=== PATIENT | male | born 1990 | race Caucasian/White ===

== ENCOUNTER 2017-07-19 20:47 | Emergency (ER) | payer MEDICARE, OTHER ==
--- NOTE | 2017-07-19 22:24 | ER Document Report ---
ED Cardiac - General Chief Complaint: Chest Pain Stated Complaint: CHEST PAIN Time Seen by Provider: 07/19/17 21:50 Notes: The patient is a 26-year-old male, past medical history factor V Leiden with PE (on Eliquis), kidney transplant 2 years ago at [place] from IgA nephropathy, hypertension, presents with several hours of diffuse chest tightness with referred pain to his bilateral shoulders. Patient says the pain is not worse with movement or inspiration. He denies shortness of breath, nausea, vomiting, fevers, cough, leg swelling, numbness, tingling, headache or abdominal pain. TRAVEL OUTSIDE OF THE [place] IN LAST 30 DAYS: No Past Medical History - General Information source: Patient - Social History Smoking Status: Unknown if Ever Smoked Family History: Reviewed & Not Pertinent Review of Systems - Review of Systems Notes: REVIEW OF SYSTEMS: CONSTITUTIONAL: -fevers, -chills EENT: -eye pain, -difficulty swallowing, -nasal congestion CARDIOVASCULAR: +chest pain, -syncope. RESPIRATORY: -cough, -SOB GASTROINTESTINAL: -abdominal pain, - nausea, -vomiting, -diarrhea GENITOURINARY: -dysuria, -hematuria MUSCULOSKELETAL: -back pain, -neck pain SKIN: -rash or skin lesions. HEMATOLOGIC: -easy bruising or bleeding. LYMPHATIC: -swollen, enlarged glands. NEUROLOGICAL: -altered mental status or loss of consciousness, -headache, - neurologic symptoms PSYCHIATRIC: -anxiety, -depression. ALL OTHER SYSTEMS REVIEWED AND NEGATIVE. Physical Exam - Vital signs Vitals: Temp Pulse Resp BP Pulse Ox 99.1 F 96 18 137/90 H 97 07/19/17 21:03 07/19/17 21:03 07/19/17 21:03 07/19/17 21:03 07/19/17 21:03 - Notes Notes: PHYSICAL EXAMINATION: GENERAL: Well-appearing, well-nourished and in no acute distress. HEAD: Atraumatic, normocephalic. EYES: Pupils equal round and reactive to light, extraocular movements intact, sclera anicteric, conjunctiva are normal. ENT: nares patent, oropharynx clear without exudates. Moist mucous membranes. NECK: Normal range of motion, supple without lymphadenopathy LUNGS: Breath sounds clear to auscultation bilaterally and equal. No wheezes rales or rhonchi. HEART: Regular rate and rhythm without murmurs ABDOMEN: Soft, nontender, normoactive bowel sounds. No guarding, no rebound. No masses appreciated. EXTREMITIES: Normal range of motion, no pitting or edema. No cyanosis. NEUROLOGICAL: Cranial nerves grossly intact. Normal speech, normal gait. Normal sensory and motor exams. PSYCH: Normal mood, normal affect. SKIN: Warm, Dry, normal turgor, no rashes or lesions noted. Course - Re-evaluation Re-evalutation: Pt's chest pain started earlier today. His EKG and troponin do not show any evidence of ACS at this time. His HEART score is 2. Pt already on Eliquis for prior PEs and patient is not having any shortness of breath, hemoptysis or hypoxia to suggest new PEs at this time. Symptoms are atypical for aortic dissection currently. Pt says his baseline creatinine is 1.6 and he follows with Dr. Larose. Patient also has a leukocytosis, but he is chronically on prednisone and there are no signs of infection at this time. Patient's lipase also slightly elevated at 450, but he is not having any epigastric pain, nausea or vomiting to suggest pancreatitis. Instructed patient that he must follow-up with his primary care physician for further evaluation and treatment. Also provided patient with follow-up at nephrology due to his renal transplant. Given very strict return precautions and he understands. - Vital Signs Vital signs: Temp Pulse Resp BP Pulse Ox 99.1 F 96 23 H 140/97 H 95 07/19/17 21:03 07/19/17 21:03 07/19/17 23:01 07/19/17 23:01 07/19/17 23:01 - Laboratory Result Diagrams: 07/19/17 22:30 07/19/17 22:30 Laboratory results interpreted by me: 07/19/17 07/19/17 22:30 22:30 WBC 14.4 H Seg Neuts % (Manual) 89 H Lymphocytes % (Manual) 4 L Abs Neuts (Manual) 12.8 H Creatinine 1.67 H Est GFR (Non-Af Amer) 50 L Calcium 10.4 H Lipase 480.5 H - Diagnostic Test Radiology reviewed: Image reviewed, Reports reviewed Radiology results interpreted by me: CXR: NAD - EKG Interpretation by Me EKG shows normal: Sinus rhythm, [place], Intervals, QRS Complexes, ST-T Waves Voltage: Consistant with LVH When compared to previous EKG there are: Previous EKG unavailable Discharge - Discharge Clinical Impression: Chest pain Qualifiers: Chest pain type: unspecified Qualified Code(s): R07.9 - Chest pain, unspecified Condition: Stable Additional Instructions: CHEST PAIN OF UNCLEAR CAUSE: The exact cause of your chest pain isn't clear. Fortunately, there is no evidence of a dangerous medical condition. Further testing may be required to find the source of the pain. Most often, we find that this pain is coming from the chest wall -- the muscles or rib joints in the chest. But chest pain can come from the lung and lung lining, the esophagus, the heart valves or heart lining, and even the stomach or gallbladder. Rest. Eat lightly until the pain is gone. We may prescribe medicine for pain and inflammation. You should call the physician immediately if the pain radiates to the shoulder, jaw or arms; if you start to run a fever or develop a cough; or if you develop shortness of breath, or other new or alarming symptoms. NORMAL EXAM AND WORKUP: At this time, your examination and workup show no significant abnormality. No significant abnormal physical findings were noted. All laboratory, EKG, and imaging (x-ray, CT scans, ultrasound) studies that were ordered show no significant abnormality. Although your examination and all studies that were ordered showed no significant abnormal finding, there are no examinations and no studies that are 100% accurate. There is always the possibility that some abnormality could exist and not be detected with physical examination or within the limits and capabilities of laboratory and other studies. You should return or follow up as you were instructed on your visit today for further evaluation if your symptoms do not resolve. CHEST WALL PAIN: Your chest pain may be coming from the chest wall. This is often caused by straining the muscles or joints in the chest during physical activity, direct trauma, coughing, or vigorous vomiting. Persons with arthritis are especially prone to this type of pain, due to inflammation of the cartilage joints near the breast bone. Occasionally, no cause can be found. Rest from strenuous physical activity. This kind of chest pain is usually made worse by movement of the chest. Depending on the symptoms, we may prescribe medicine for pain, muscle relaxation, and antiinflammatory effects. If the pain is new, and seems to be due to muscle strain, cold packs can help. Otherwise, apply gentle warmth to the painful area for 15 minutes every hour or two. You should call contact the doctor immediately if things change. Further evaluation is needed if you develop a fever or cough, if the nature of the pain changes, or if you become short of breath. ANGINA EPISODE: Your physician has diagnosed the pain you experienced as an episode of angina. Angina occurs when a portion of the heart muscle temporarily lacks oxygen. It does not cause any permanent heart damage, but serves as a warning. Hospitalization is not necessary now. Evaluation of your cardiac condition , and medical therapy for angina will be necessary. It's important you be sure to keep all appointments and take medication exactly as prescribed. Angina is usually treated with a type of "nitrate" medication. This is available as ointment, pills, or sublingual (under the tongue) tablets. Depending on your clinical situation, other medications may be added to help control angina. These may include beta blockers or calcium blockers. If episodes of angina are occurring with increased frequency, or if chest pain lasts longer than 15 minutes or does not respond to nitroglycerin, you must seek emergency medical care immediately. ACID REFLUX DISEASE (GERD): Gastro-Esophageal Reflux Disease (GERD) is caused by stomach acid refluxing back up into the esophagus. The valve at the end of the esophagus may be weak. This is common in persons with a hiatal hernia. GERD symptoms can include indigestion, chest pain, heartburn, or food "sticking." Certain foods, alcohol, and aspirin can make GERD worse. Treatment depends on the severity. Usually, antacids or acid-suppressing medicines are used. When the esophagus is acutely inflamed, the physician will often prescribe membrane-protective drugs such as Carafate. Some patients benefit from medication such as Reglan that tightens the valve at the top of the stomach. Avoid those foods that bring on your symptoms. For many people, these foods are coffee, chocolate, onions, garlic, and carbonated drinks. Don't use alcohol, aspirin, caffeine, or tobacco. Don't eat late at night -- within 4 hours of bedtime. Don't over-eat. If necessary, elevate the head of your bed about 4 inches so that stomach acid will not roll up into your esophagus. Call the doctor if you develop severe chest pain, inability to swallow fluids, fever, or worsening symptoms. FOLLOW-UP CARE: If you have been referred to a physician for follow-up care, call the physician s office for an appointment as you were instructed or within the next two days. If you experience worsening or a significant change in your symptoms, notify the physician immediately or return to the Emergency Department at any time for re-evaluation. Forms: Elevated Blood Pressure Referrals: JIAN MUNIZ MD [COMMUNITY BASED STAFF] - Follow up as needed CARLIE DAVILA MD [ACTIVE STAFF] - Follow up as needed
--- NOTE | 2017-07-19 22:36 | RADIOLOGY REPORT (SQ) ---
EXAM DESCRIPTION: CHEST PA/LAT COMPLETED DATE/TIME: 07/19/2017 10:25 pm REASON FOR STUDY: chest pain COMPARISON: None. EXAM PARAMETERS: NUMBER OF VIEWS: two views TECHNIQUE: Digital Frontal and Lateral radiographic views of the chest acquired. RADIATION DOSE: NA LIMITATIONS: none FINDINGS: LUNGS AND PLEURA: No opacities, masses or pneumothorax. No pleural effusion. MEDIASTINUM AND HILAR STRUCTURES: No masses or contour abnormalities. HEART AND VASCULAR STRUCTURES: Heart normal size. No evidence for failure. BONES: No acute findings. HARDWARE: None in the chest. OTHER: No other significant finding. IMPRESSION: NO SIGNIFICANT RADIOGRAPHIC FINDING IN THE CHEST. TECHNICAL DOCUMENTATION: JOB ID: [id number] [place]-72 2010 [employer]- All Rights Reserved
[2017-07-19 22:48] LABS: HEMOGLOBIN 14.8 g/dL (13.5-17.0); HGB HCT DIFFERENCE 1.4; MEAN CORPUSCULAR HEMOGLOBIN 30.4 pg (27.0-33.4); MEAN CORPUSCULAR HGB CONC 34.4 g/dL (32.0-36.0); MEAN CORPUSCULAR VOLUME 88 fl (80-97); RED BLOOD COUNT 4.87 10^6/uL (4.35-5.55); RED CELL DISTRIBUTION WIDTH 13.4 % (11.5-14.0); WHITE BLOOD COUNT 14.4 10^3/uL (4.0-10.5)
[2017-07-19 22:58] LABS: ALANINE AMINOTRANSFERASE 33 U/L (21-72); ALBUMIN 4.9 g/dL (3.5-5.0); ALKALINE PHOSPHATASE 63 U/L (38-126); ANION GAP 15 (5-19); ASPARTATE AMINO TRANSFERASE 22 U/L (17-59); BILIRUBIN,DIRECT 0.2 mg/dL (0.0-0.4); BILIRUBIN,TOTAL 0.7 mg/dL (0.2-1.3); BLOOD UREA NITROGEN 19 mg/dL (7-20); CALCIUM 10.4 mg/dL (8.4-10.2); CARBON DIOXIDE 24 mmol/L (22-30); CHLORIDE 100 mmol/L (98-107); CREATINE KINASE 149 U/L (55-170); CREATININE RESULT 1.67 mg/dL (0.52-1.25); GLUCOSE 96 mg/dL (75-110); LIPASE 480.5 U/L (23-300); SODIUM 138.6 mmol/L (137-145); TOTAL PROTEIN 7.6 g/dL (6.3-8.2)
[2017-07-19] MEDS ORDERED: HYDROCODONE/ACETAMINOPHEN 5-325 MG TABLET PO ONE (23:06)
[2017-07-19 23:09] LABS: TROPONIN I < 0.012 ng/mL
[2017-07-19 23:10] LABS: BASOPHILS % (MANUAL) 0 % (0-2); EOSINOPHILS % (MANUAL) 0 % (0-6); LYMPHOCYTES % (MANUAL) 4 % (13-45); TOTAL CELLS COUNTED 100
[2017-07-19 23:11] LABS: OVALOCYTES SLIGHT; POIKILOCYTOSIS SLIGHT
[2017-07-19 23:21] VITALS: BP 140/97
--- NOTE | 2017-07-20 07:50 | EKG REPORT ---
SEVERITY:- ABNORMAL ECG - SINUS RHYTHM PROBABLE LEFT VENTRICULAR HYPERTROPHY : Confirmed by: Tani Haddad MD 20-Jul-2017 07:48:52
== END 2017-07-19 23:40 | disposition home or self-care (01) ==
LOC: ER 20:47
DX: R07.89 Other chest pain (principal); R74.8 Abnormal levels of other serum enzymes; D68.51 Activated protein C resistance; Z79.01 Long term (current) use of anticoagulants; Z86.711 Personal history of pulmonary embolism; Z94.0 Kidney transplant status; I10 Essential (primary) hypertension; D72.829 Elevated white blood cell count, unspecified; Z79.52 Long term (current) use of systemic steroids
CPT/HCPCS: 93005; 99285; 36415; 82550; 83690; 85025; 80053; 84484; 83880; 71020; 93010; A9270

== ENCOUNTER 2020-02-01 09:03 | Emergency (ER) | payer BC, MEDICARE ==
[2020-02-01] MEDS ORDERED: NORMAL SALINE 1000 ML 1,000 ML IV ONE (10:10)
[2020-02-01] MEDS ORDERED: LEVOFLOXACIN 750 MG/D5W RTU 750 MG/150 ML RTUPB IV ONE (10:10)
[2020-02-01 11:26] LABS: APPEARANCE,URINE CLEAR; BILIRUBIN,URINE NEGATIVE (NEGATIVE); COLOR,URINE STRAW; GLUCOSE, URINE NEGATIVE (NEGATIVE); KETONES,URINE NEGATIVE (NEGATIVE); LEUKOCYTE ESTERASE,URINE NEGATIVE (NEGATIVE); NITRITE,URINE NEGATIVE (NEGATIVE); PROTEIN,URINE NEGATIVE (NEGATIVE); URINE SPECIFIC GRAVITY 1.011; UROBILINOGEN,URINE NEGATIVE mg/dL (<2.0)
[2020-02-01 11:37] LABS: ABSOLUTE LYMPHOCYTES (AUTO) 0.8 10^3/uL (0.5-4.7); ABSOLUTE MONOCYTES (AUTO) 0.2 10^3/uL (0.1-1.4); ABSOLUTE NEUT (AUTO) 7.9 10^3/uL (1.7-8.2); BASOPHILS % (AUTO) 0.4 % (0-2); EOSINOPHILS % (AUTO) 0.2 % (0-6); HEMATOCRIT 43.1 % (37.9-51.0); HEMOGLOBIN 15.1 g/dL (13.5-17.0); LYMPHOCYTES % (AUTO) 9.4 % (13-45); MEAN CORPUSCULAR HEMOGLOBIN 31.1 pg (27.0-33.4); MEAN CORPUSCULAR VOLUME 89 fl (80-97); MONOCYTES % (AUTO) 2.2 % (3-13); PLATELET COUNT 239 10^3/uL (150-450); RED BLOOD COUNT 4.84 10^6/uL (4.35-5.55); RED CELL DISTRIBUTION WIDTH 12.8 % (11.5-14.0); SEGMENTED NEUTROPHILS % (AUTO) 87.8 % (42-78); TOTAL CELLS COUNTED % (AUTO) 100 %
[2020-02-01 11:43] LABS: ALBUMIN 4.8 g/dL (3.5-5.0); ALKALINE PHOSPHATASE 56 U/L (38-126); ANION GAP 8 (5-19); ASPARTATE AMINO TRANSFERASE 23 U/L (17-59); BILIRUBIN,TOTAL 0.6 mg/dL (0.2-1.3); BLOOD UREA NITROGEN 24 mg/dL (7-20); CALCIUM 10.5 mg/dL (8.4-10.2); CARBON DIOXIDE 24 mmol/L (22-30); CHLORIDE 106 mmol/L (98-107); GLUCOSE 120 mg/dL (75-110); POTASSIUM 4.8 mmol/L (3.6-5.0); TOTAL PROTEIN 7.6 g/dL (6.3-8.2)
[2020-02-01 12:57] LABS: CHLAM PCR NOT DETECTED (NOT DETECT)
[2020-02-01] MEDS ORDERED: CEFTRIAXONE INJ 250 MG VIAL IM ONE (14:18)
[2020-02-01] MEDS ORDERED: LIDOCAINE 1% INJ-PF (10 MG/ML) 30 ML SDV ONE (14:35)
--- NOTE | 2020-02-01 15:53 | RADIOLOGY REPORT (SQ) ---
EXAM DESCRIPTION: CT ABD/PELVIS NO ORAL OR IV IMAGES COMPLETED DATE/TIME: 02/01/2020 3:37 pm REASON FOR STUDY: bilat/renal transplant/hematuria COMPARISON: None. TECHNIQUE: CT scan of the abdomen and pelvis performed without intravenous or oral contrast. Images reviewed with lung, soft tissue, and bone windows. Reconstructed coronal and sagittal MPR images revi ewed. All images stored on PACS. All CT scanners at this facility use dose modulation, iterative reconstruction, and/or weight based d osing when appropriate to reduce radiation dose to as low as reasonably achievable (ALARA). [facility]: Dose Right [facility]: CareDose [facility]: Dose Right [facility]: Teradose 4D [facility]: [employer] RADIATION DOSE: CT Rad equipment meets quality standard of care and radiation dose reduction techniq ues were employed. CTDIvol: 6.8 mGy. DLP: 387 mGy-cm.mGy. LIMITATIONS: None. FINDINGS: LOWER CHEST: No significant findings. No nodules or infiltrates. NON-CONTRASTED LIVER, SPLEEN, ADRENALS: Evaluation limited by lack of IV contrast. No identified sign ificant masses. PANCREAS: No masses. No peripancreatic inflammatory changes. GALLBLADDER: No calcified stones. No inflammatory changes to suggest cholecystitis. RIGHT KIDNEY AND URETER: Atrophic. No hydronephrosis or hydroureter. LEFT KIDNEY AND URETER: Atrophic. No hydronephrosis or hydroureter. AORTA AND RETROPERITONEUM: No aneurysm. No retroperitoneal masses or adenopathy. BOWEL AND PERITONEAL CAVITY: No obvious masses or inflammatory changes. No free fluid. APPENDIX: Normal. PELVIS, BLADDER, AND ABDOMINAL WALL:Right pelvic transplanted kidney. No free fluid. Unremarkable luigi dder. BONES: No acute findings. OTHER: No other significant finding. IMPRESSION: NO ACUTE FINDINGS.Right pelvic transplanted kidney. No free fluid. Unremarkable bladder. TECHNICAL DOCUMENTATION: JOB ID: [id number] [place]-72 Quality ID # [id number]: Final reports with documentation of one or more dose reduction techniques (e.g., Au tomated exposure control, adjustment of the mA and/or kV according to patient size, use of iterative reconstruction technique) 2010 [employer]- All Rights Reserved Reading location - IP/workstation name: [email or web address]
--- NOTE | 2020-02-01 16:14 | ER Document Report ---
Entered by CORDELIA LEVY SCRIBE 02/01/20 0957 Acting as scribe for:SHANE VELÁZQUEZ MD ED GI/ - General Chief Complaint: Urinary Problem Stated Complaint: URINARY PROBLEMS/BACK PAIN Time Seen by Provider: 02/01/20 09:23 Information source: Patient Notes: This 29 year old male patient presents to the emergency department today with complaints of bilateral flank pain R>L for the past x3 days. Patient reports burning while urinating and white discharge. Patient states he has a history of bilateral kidney failure in 2013 and had a transplant in 2014. Patient states his flank pain is dull and aching. Patient states he takes anti-rejection medicine for his transplant and has a appointment in x15 days at [facility] for his kidney. Denies pain where his transplant is located. Denies any fever, chills, or N/V/D. Patient reports he had chlamydia in and is currently taking antibiotics for poison praveen. TRAVEL OUTSIDE OF THE [place] IN LAST 30 DAYS: No - Related Data Allergies/Adverse Reactions: insulin glargine Allergy (Verified 02/01/20 09:09) Home Medications: nifidipine. prednisone. lorsartin. tacrolimus. mycophenolate Past Medical History - General Information source: Patient - Social History Smoking Status: Former Smoker Cigarette use (# per day): No Chew tobacco use (# tins/day): Yes - in past Frequency of alcohol use: Social Drug Abuse: None Family History: Reviewed & Not Pertinent Patient has homicidal ideation: No Renal/ Medical History: Reports: Other - Bilateral kidney failure 2013 Past Surgical History: Reports: Hx Kidney (Renal Surgery) - Kidney transplant 2 015 Review of Systems - Review of Systems Constitutional: See HPI. denies: Chills, Fever EENT: No symptoms reported Cardiovascular: No symptoms reported Respiratory: No symptoms reported Gastrointestinal: See HPI. denies: Diarrhea, Nausea, Vomiting Genitourinary: See HPI, Burning, Flank pain - bilateral R>L Male Genitourinary: See HPI Musculoskeletal: No symptoms reported Skin: See HPI Hematologic/Lymphatic: No symptoms reported Neurological/Psychological: No symptoms reported -: Yes All other systems reviewed and negative Physical Exam - Vital signs Vitals: Temp 97.7 F 02/01/20 09:09 - General General appearance: Appears well, Alert - HEENT Head: Normocephalic, Atraumatic Eyes: Normal Pupils: PERRL - Respiratory Respiratory status: No respiratory distress Chest status: Nontender Breath sounds: Normal Chest palpation: Normal - Cardiovascular Rhythm: Regular Heart sounds: Normal auscultation Murmur: No - Abdominal Inspection: Normal Distension: No distension Bowel sounds: Normal Tenderness: Nontender - Genitourinary Notes: Circumcised male. Genitalia is normal on exam. Testicles are non-tender. No hernia. No sores noted on the penis or discharge. - Back Back: Other - No CVA tenderness - Extremities General upper extremity: Normal inspection. No: Edema General lower extremity: Normal inspection. No: Edema - Neurological Neuro grossly intact: Yes Cognition: Normal Orientation: AAOx4 Speech: Normal - Psychological Associated symptoms: Normal affect, Normal mood - Skin Skin Temperature: Warm Skin Moisture: Dry Skin Color: Normal Course - Re-evaluation Re-evalutation: 02/01/20 16:04 Patient reports that he is not having urinary discomfort at this time or flank pain. - Vital Signs Vital signs: Temp Pulse Resp BP Pulse Ox 98.4 F 59 L 15 145/85 H 100 02/01/20 13:59 02/01/20 13:59 02/01/20 13:59 02/01/20 13:59 02/01/20 13:59 - Laboratory Result Diagrams: 02/01/20 10:40 02/01/20 10:40 Laboratory results interpreted by me: 02/01/20 02/01/20 02/01/20 10:40 10:40 10:40 Lymph % (Auto) 9.4 L [place] % (Auto) 2.2 L Seg Neutrophils % 87.8 H BUN 24 H Creatinine 1.50 H Est GFR (MDRD) Non-Af 55 L Glucose 120 H Calcium 10.5 H Urine Blood SMALL H Signs are stable patient's laboratories are within normal limits his creatinine is 1.5 which is his baseline there was a small amount of urine noted on the dipstick on and on microscopic study that showed a 2 red cells per high-powered field. There was no white blood cells or bacteria nitrite positive urine. 02/01/20 16:06 Also laboratory results shows negative PCR testing of urine for gonorrhea and chlamydia. A urethral swab of the penis was done to send out for culture of gonorrhea and chlamydia. Also patient received IM Rocephin 250 mg in the emergency department. And patient will be discharged home to take 1 g of Zithromax. Patient is to be followed up with his kidney specialist at [facility] regarding his recent visit. - Diagnostic Test Radiology reviewed: Image reviewed, Reports reviewed Radiology results interpreted by me: 02/01/20 16:06 CT scan of abdomen and pelvis noncontrast shows a transplanted kidney in the right lower quadrant of the abdomen no other acute process noted. No kidney stones were seen no evidence of pyelonephritis seen. Discharge - Discharge Clinical Impression: Urethral discharge in male, Flank pain, Renal transplant recipient Condition: Stable Disposition: HOME, SELF-CARE Additional Instructions: Urethritis You have urethritis, an infection of the urethra. The usual symptoms are pain on urination and discharge. The infection is often caused by gonorrhea or chlamydia. Treatment is antibiotics. In addition, any sexual contacts should be e valuated by a physician as soon as possible. As this infection can be transmitted sexually, refrain from sexual activity until the infection is confirmed as healed by your physician. If gonorrhea or chlamydia is found on culture, the health department must be notified. Call the doctor at once if you develop difficulty passing your urine, high fever, rash, joint swelling, or other new symptoms. As you [id number] urinalysis checked for chlamydia and gonorrhea came back negative and a urethral swab has been done and sent to the lab for further culturing. CT scan of your abdomen and pelvis did not show any problems of kidney stones or any signs of infection about your kidneys and no other acute process is noted. Plan for you is to drink plenty of fluids and stay well- hydrated you have been treated with IM Rocephin which is medication that would cover a gonorrhea infection. And you have been also placed on Zithromax 1 g once which would cover chlamydia. Still pending is a culture prove of either 1 of those diseases which remains to be determined. Follow-up with your kidney specialist and [facility] as you already have an appointment. Prescriptions: Azithromycin [Zithromax] 1 gm PO ONCE PRN #1 packet PRN Reason: I personally performed the services described in the documentation, reviewed and edited the documentation which was dictated to the scribe in my presence, and it accurately records my words and actions.
[2020-02-01 16:44] VITALS: BP 132/82
== END 2020-02-01 16:43 | disposition home or self-care (01) ==
LOC: ER 09:03
DX: R36.9 Urethral discharge, unspecified (principal); R10.9 Unspecified abdominal pain; Z94.0 Kidney transplant status; L23.7 Allergic contact dermatitis due to plants, except food; Z79.899 Other long term (current) drug therapy; Z79.52 Long term (current) use of systemic steroids; Z87.891 Personal history of nicotine dependence; Z88.8 Allergy status to other drugs, medicaments and biological substances
CPT/HCPCS: 99284; 96372; 96365; 87491 ×2; 87591 ×2; 36415; 87040; 87086; 83605; 85025; 80053; 81001; 74176; J7030; J0696; J1956